=== PATIENT | male | born 1995 | race Asian ===

== ENCOUNTER 2017-06-13 19:57 | Emergency (ER) | payer MEDICAID ==
[2017-06-13 21:28] LABS: UA SPECIFIC GRAVITY >=1.030 (1.005-1.035); microscopic required? YES; urine erythrocyte TRACE (NEGATIVE)
[2017-06-13 22:55] VITALS: BP 146/82
== END 2017-06-13 22:55 | disposition home or self-care (01) ==
LOC: ED 19:57
PROVIDERS: Emergency Medicine
DX: S39.012A Strain of muscle, fascia and tendon of lower back, initial encounter (principal); R10.9 Unspecified abdominal pain; X58.XXXA Exposure to other specified factors, initial encounter; Y93.89 Activity, other specified; Y92.89 Other specified places as the place of occurrence of the external cause; Y99.8 Other external cause status
CPT/HCPCS: J1885

== ENCOUNTER 2017-07-16 17:01 | Emergency (ER) | payer MEDICAID ==
[2017-07-16 20:40] VITALS: BP 122/75
== END 2017-07-16 20:40 | disposition home or self-care (01) ==
LOC: ED 17:01
DX: F32.9 Major depressive disorder, single episode, unspecified (principal); R53.83 Other fatigue

== ENCOUNTER 2018-11-27 18:38 | Emergency (ER) | payer BC ==
[~2018-11-27] VITALS: Ht 167.6 cm; Wt 59.9 kg
[2018-11-27 18:51] VITALS: Ht 167.6 cm; Wt 59.9 kg
[2018-11-27 19:46] VITALS: BP 140/70
== END 2018-11-27 19:46 | disposition home or self-care (01) ==
LOC: ED 18:38
DX: F41.9 Anxiety disorder, unspecified (principal); R20.2 Paresthesia of skin
CPT/HCPCS: 82962